=== PATIENT | male | born 1975 | race Two or more races ===

== ENCOUNTER 2025-04-21 19:56 | Emergency (ER) | payer MEDICAID, OTHER ==
[~2025-04-21] VITALS: Ht 170.2 cm; Wt 113.4 kg
[2025-04-21 20:29] VITALS: BP 132/81; PULSE 74; RESP 17; TEMP 97.9; O2SAT 98
--- NOTE | 2025-04-21 20:44 | ED.PDOC ---
HPI Comments PER EMS, PATIENT WAS ON A LADDER, CUTTING A TREE BRANCH WITH A CHAINSAW. PATIENT SLIPPED OFF THE LADDER AT APPROX 5 FEET AND CUT LEFT UPPER ARM WITH A TREE BRANCH. DENIES HEAD INJURY AND LOC. BLEED IS CURRENTLY CONTROLLED. Chief Complaint: Fall Injury Time Seen by MD: 20:11 Reviewed Notes: Nurses Notes, [employer] Deputy Sheriff Notes, Medications, Allergies Allergies: Coded Allergies: NO KNOWN ALLERGIES (Unverified , 04/21/25) Information Source: Patient Mode of Arrival: EMS Past Medical History PAST MEDICAL HISTORY: Denies Surgical History: Denies all surgeries Family History Family History: Reviewed,noncontributory to illness Social History Smoker: Non-Smoker Alcohol: Denies ETOH Use Drugs: Denies Drug Use Constitutional: denies: chills, diaphoresis, fatigue, fever, malaise, sweats, weakness, others EENTM: denies: blurred vision, double vision, ear bleeding, ear discharge, ear drainage, ear pain, ear ringing, eye pain, eye redness, hearing loss, mouth pain, mouth swelling, nasal discharge, nose bleeding, nose congestion, nose pain, photophobia, tearing, throat pain, throat swelling, voice changes, others Respiratory: denies: cough, hemoptysis, orthopnea, SOB at rest, shortness of breath, SOB with excertion, stridor, wheezing, others Cardiovascular: denies: chest pain, dizzy spells, diaphoresis, Dyspnea on exertion, edema, irregular heart beat, left arm pain, lightheadedness, palpitations, PND, syncope, others Gastrointestinal: denies: abdomen distended, abdominal pain, blood streaked bowels, constipated, diarrhea, dysphagia, difficulty swallowing, hematemesis, melena, nausea, poor appetite, poor fluid intake, rectal bleeding, rectal pain, vomiting, others Genitourinary: denies: burning, dysuria, flank pain, frequency, hematuria, incontinence, penile discharge, penile sore, pain, testicle pain, testicle swelling, urgency, others Neurological: denies: dizziness, fainting, headache, left sided numbness, left sided weakness, numbness, paresthesia, pre-existing deficit, right sided numbness, right sided weakness, seizure, speech problems, tingling, tremors, weakness, others Musculoskeletal: denies: back pain, gout, joint pain, joint swelling, muscle pain, muscle stiffness, neck pain, others Integumetry: reports: laceration (LEFT FOREARM WITH DRESSING INTACT); denies: bruises, change in color, change in hair/nails, dryness, lesions, lumps, rash, wounds, others Allergic/Immunocompromised: denies: Difficulty Healing, Frequent Infections, Hives, Itching, others Hematologic/Lymphatic: denies: anemia, blood clots, easy bleeding, easy bruising, swollen glands, others Endocrine: denies: excessive hunger, excessive sweating, excessive thirst, excessive urination, flushing, intolerance to cold, intolerance to heat, unexplained weight gain, unexplained weight loss, others Physical Exam General Appearance: No Apparent Distress, Normal HEENT: Normal ENT Inspection, Pharynx Normal, TMs Normal Neck: Full Range of Motion, Non-Tender Respiratory: Chest Non-Tender, Lungs Clear, No Respiratory Distress, Normal Breath Sounds Cardiovascular: No Edema, No JVD, No Murmur, No Gallop, Normal Peripheral Pulses, Regular Rate/Rhythm Breast Exam: Deferred Gastrointestinal: No Organomegaly, Non Tender, No Pulsatile Mass, Normal Bowel Sounds, Soft Genitalia: Deferred Pelvic: Deferred Rectal: Deferred Extremities: Normal capillary refill, Normal inspection, Normal range of motion, Non-tender, No pedal edema Musculoskeletal : Apperance: Normal Neurologic: Alert, light bulb replacer II-XII nml as Tested, No Motor Deficits, Normal Affect, Normal Mood, No Sensory Deficits Cerebellar Function: Normal Reflexes: Normal Skin: Dry, Normal Color, Warm Lymphatic: No Adenopathy Was a procedure done? Was a procedure done?: No Differential diagnosis Generic Laceration: Retained Foriegn Body, Neurovascular Injury, Tendon Injury, Abrasion/Contusion X-Ray, Labs, Meds, VS Vital Signs Date Time Temp Pulse Resp B/P (MAP) Pulse Ox O2 Delivery O2 Flow Rate FiO2 04/21/25 20:29 97.9 74 17 132/81 (98) 98 97.9 Time of 1ST Reevaluation: 20:44 Reevaluation 1ST: Unchanged Patient Education/Counseling: Diagnosis, Treatment, Prognosis, Need For Follow Up Family Education/Counseling: No Family Present Departure 1 Departure Time of Disposition: 22:56 Impression: Primary Impression: Avulsion of left forearm Qualified Codes: S51.802A - Unspecified open wound of left forearm, initial encounter Disposition: 04 [facility]ARE FACILITY Condition: Stable Discharged With: Self Critical Care Note Critical Care Time?: No Stability Stability form required: YOSI Jorgensen April 21, 2025 20:44
[2025-04-21] MEDS: LIDOCAINE W/ EPINEPHRINE 1% 20ML VIAL ID ONE (23:05)
[2025-04-21] MEDS: OXYCODONE W/ ACETAMINOPHEN 5/325MG TABLET PO ONE (23:24)
== END 2025-04-21 23:48 | disposition left against medical advice (07) ==
LOC: EDBD 19:56 → ER 19:56
DX: S51.802A Unspecified open wound of left forearm, initial encounter (principal); W11.XXXA Fall on and from ladder, initial encounter; Y93.89 Activity, other specified; Y92.89 Other specified places as the place of occurrence of the external cause; Y99.8 Other external cause status